=== PATIENT | male | born 1965 | race Two or more races ===

== ENCOUNTER 2016-06-30 12:05 | Emergency (ER) | payer SELFPAY ==
[~2016-06-30] VITALS: Ht 167.6 cm; Wt 72.6 kg
[2016-06-30 12:17] VITALS: BP 127/85
[2016-06-30 14:09] LABS: BASOPHILS % (AUTO) 1.6 % (0.0-2.0); LYMPHOCYTES % (AUTO) 9.8 % (20.0-45.0); MEAN CORPUSCULAR HEMOGLOBIN 31.5 PG (27.0-31.0); MEAN CORPUSCULAR HGB CONC 32.7 G/DL (32.0-36.0); MEAN CORPUSCULAR VOLUME 96 FL (80-99); MEAN PLATELET VOLUME 6.3 FL (6.5-10.1); MONOCYTES % (AUTO) 9.5 % (1.0-10.0); NEUTROPHILS % (AUTO) 79.1 % (45.0-75.0); PLATELET COUNT 290 K/UL (150-450); RED BLOOD COUNT 4.99 M/UL (4.70-6.10); RED CELL DISTRIBUTION WIDTH 13.8 % (11.6-14.8); WHITE BLOOD COUNT 6.8 K/UL (4.8-10.8)
[2016-06-30 14:19] LABS: TROPONIN I < 0.30 ng/mL (<=0.30)
[2016-06-30 14:20] LABS: ALANINE AMINOTRANSFERASE 197 U/L (3-41); ALBUMIN/GLOBULIN RATIO 1.3 (1.0-2.7); ALCOHOL 96 mg/dL; ANION GAP 27 (5-15); ASPARTATE AMINO TRANSFERASE 200 U/L (5-40); CALCIUM 9.1 mg/dL (8.6-10.2); CARBON DIOXIDE 20 mEQ/L (20-30); CHLORIDE 92 mEQ/L (98-107); CREATININE 0.7 mg/dL (0.7-1.2); GLOMERULAR FILTRATION RATE > 60 mL/min (>60); HEMOLYSIS 7; POTASSIUM 3.8 mEQ/L (3.4-4.9); SODIUM 139 mEQ/L (135-145); TOTAL PROTEIN 7.4 g/dL (6.6-8.7)
[2016-06-30 14:30] LABS: CKMB 8.4 ng/mL (< 6.7)
--- NOTE | 2016-06-30 14:56 | Emergency Room Report ---
History of Present Illness General Chief Complaint: Nausea Source: Patient Present Illness HPI This patient is a homeless male. He states that he has a history of alcoholism and he had been decreasing the amount of alcohol he has been drinking over the past 2 weeks. He states that he did drink some yesterday and today. However he is drinking significantly less. He is concerned because he's been having palpitations and nausea and abdominal cramping over the past 2 weeks since he started decreasing alcohol. He denies cough or congestion. He denies fever. He has no other complaints. Allergies: Coded Allergies: No Known Allergies (Unverified , 06/30/16) Patient History Past Medical History: see triage record, other - ETOH abuse and dependence Social History: Reports: alcohol use, Denies: drug use, smoking Reviewed Nursing Documentation: PMH: Agreed, PSxH: Agreed Review of Systems All Other Systems: negative except mentioned in HPI Physical Exam Vital Signs Date Time Temp Pulse Resp B/P Pulse Ox O2 Delivery O2 Flow Rate FiO2 06/30/16 11:57 99.0 120 18 154/82 100 Room Air Sp02 EP Interpretation: reviewed, normal General Appearance: no apparent distress, alert, GCS 15, non-toxic Head: normocephalic, atraumatic Eyes: bilateral eye PERRL, bilateral eye normal inspection ENT: hearing grossly normal, normal pharynx, no angioedema, normal voice Neck: full range of motion, supple/symm/no masses Respiratory: chest non-tender, lungs clear, normal breath sounds, speaking full sentences Cardiovascular #1: no edema, tachycardia Gastrointestinal: normal bowel sounds, soft, non-distended, no guarding, no rebound, tenderness - mild ttp Rectal: deferred Musculoskeletal: back normal, gait/station normal, normal range of motion, non- tender Neurologic: alert, oriented x3, responsive, motor strength/tone normal, sensory intact, speech normal Psychiatric: judgement/insight normal, memory normal, mood/affect normal, no suicidal/homicidal ideation Skin: normal color, no rash, warm/dry, well hydrated Medical Decision Making Diagnostic Impression: Primary Impression: Alcohol withdrawal ER Course This patient presents with alcohol withdrawal symptoms. I did obtain laboratory workup to include CBC, CMP and cardiac enzymes. These were unremarkable. Given the length of symptoms, this is reassuring that this is not acute coronary syndrome. There are no red flags on abdominal exam that would make me concerned for an intra-abdominal infection. Also laboratory workup is benign. The patient is a blood alcohol of 92. However, I suspect that this patient given his history of alcoholism had been drinking with blood alcohol likely in the 300s daily. Further, the patient's symptoms are very consistent with alcohol withdrawal syndrome. Initially, the patient was tachycardic but this resolved in the emergency department. I will go ahead and give this patient Librium and Zofran to help with his symptoms. He does plan to continue titrating himself off alcohol. He was also given a local resources for alcohol rehabilitation. Labs Test 06/30/16 13:31 White Blood Count 6.8 K/UL (4.8-10.8) Red Blood Count 4.99 M/UL (4.70-6.10) Hemoglobin 15.7 G/DL (14.2-18.0) Hematocrit 48.1 % (42.0-52.0) Mean Corpuscular Volume 96 FL (80-99) Mean Corpuscular Hemoglobin 31.5 PG (27.0-31.0) Mean Corpuscular Hemoglobin Concent 32.7 G/DL (32.0-36.0) Red Cell Distribution Width 13.8 % (11.6-14.8) Platelet Count 290 K/UL (150-450) Mean Platelet Volume 6.3 FL (6.5-10.1) Neutrophils (%) (Auto) 79.1 % (45.0-75.0) Lymphocytes (%) (Auto) 9.8 % (20.0-45.0) Monocytes (%) (Auto) 9.5 % (1.0-10.0) Eosinophils (%) (Auto) 0.0 % (0.0-3.0) Basophils (%) (Auto) 1.6 % (0.0-2.0) Sodium Level 139 mEQ/L (135-145) Potassium Level 3.8 mEQ/L (3.4-4.9) Chloride Level 92 mEQ/L (98-107) Carbon Dioxide Level 20 mEQ/L (20-30) Anion Gap 27 (5-15) Blood Urea Nitrogen 10 mg/dL (7-23) Creatinine 0.7 mg/dL (0.7-1.2) Estimat Glomerular Filtration Rate > 60 mL/min (>60) Glucose Level 124 mg/dL (74-106) Calcium Level 9.1 mg/dL (8.6-10.2) Total Bilirubin 1.0 mg/dL (0.0-1.2) Aspartate Amino Transf (AST/SGOT) 200 U/L (5-40) Alanine Aminotransferase (ALT/SGPT) 197 U/L (3-41) Alkaline Phosphatase 50 U/L (40-129) Total Creatine Kinase 566 U/L (38-174) Creatine Kinase MB 8.4 ng/mL (< 6.7) Creatine Kinase MB Relative Index 1.4 Troponin I < 0.30 ng/mL (<=0.30) Total Protein 7.4 g/dL (6.6-8.7) Albumin 4.3 g/dL (3.5-5.2) Globulin 3.1 g/dL Albumin/Globulin Ratio 1.3 (1.0-2.7) Urine Opiates Screen Negative (NEGATIVE) Urine Barbiturates Screen Negative (NEGATIVE) Phencyclidine (PCP) Screen Negative (NEGATIVE) Urine Amphetamines Screen Negative (NEGATIVE) Urine Benzodiazepines Screen Negative (NEGATIVE) Urine Cocaine Screen Negative (NEGATIVE) Urine Marijuana (THC) Screen Negative (NEGATIVE) Serum Alcohol 96 mg/dL EKG Diagnostic Results Rate: normal Rhythm: NSR ST Segments: no acute changes Rhythm Strip Diag. Results EP Interpretation: yes Rate: 90's Rhythm: NSR, no PVC's, no ectopy Chest X-Ray Diagnostic Results EP Interpretation: Yes Findings: no consolidation, no effusion, no pneumothorax, no acute cardiopulmonary disease Number of Views: 1 Last Vital Signs Date Time Temp Pulse Resp B/P Pulse Ox O2 Delivery O2 Flow Rate FiO2 06/30/16 12:17 104 17 127/85 98 Room Air 06/30/16 11:57 99.0 Status: improved Disposition: HOME, SELF-CARE Condition: Stable Referrals: NOT CHOSEN JERMAINE/,REFERRING (PCP) MARIELLA CHILD D.O. Jun 30, 2016 14:56
[2016-06-30] MEDS ORDERED: LIBRIUM10 MG ORAL (14:58)
[2016-06-30] MEDS ORDERED: ZOFRAN ODT4 MG ORAL (14:58)
[2016-06-30 15:00] VITALS: BP 116/79
--- NOTE | 2016-06-30 15:39 | Diagnostic Imaging Report ---
Indication: VOMITING Technique: One view of the chest Comparison: none Findings: Lungs and pleural spaces are clear. Heart size is normal. Aorta is tortuous. Impression: No acute process
[2016-06-30] MEDS ORDERED: PEPCID20 MG ORAL (21:29)
== END 2016-06-30 15:00 | disposition home or self-care (01) ==
LOC: EDBD → EMR 13:05
DX: F10.239 Alcohol dependence with withdrawal, unspecified (principal); R00.2 Palpitations; Z59.0 Homelessness
CPT/HCPCS: 36415; 71010; 80053; 80300; 82550; 82553; 84484; 85025; 93005; 96374; 96375; 99284; G0480; J2405; 80329

== ENCOUNTER 2016-06-30 18:19 | Emergency (ER) | payer SELFPAY ==
[~2016-06-30] VITALS: Ht 172.7 cm; Wt 99.8 kg
[~2016-06-30 18:19] MED LIST: LIBRIUM10 MG ORAL; ZOFRAN ODT4 MG ORAL
[2016-06-30 20:45] VITALS: BP 141/91
--- NOTE | 2016-06-30 20:57 | Emergency Room Report ---
History of Present Illness General Chief Complaint: Abdominal Pain Source: Patient Present Illness HPI 50 YO M with HTN presents with generalized abd pain, nausea, and dehydration. History of HTN. +EOTH. Denies other drugs. Denies previous surgery. Denies vomiting, diarrhea. Per EMS, patient brought in after found sleeping on park bench. Patient was recently released from ER a few hours prior - seen by Dr Pierre. Labs were unremarkable. ETOH was mildly elevated. Patient was hydrated and released. Allergies: Coded Allergies: No Known Allergies (Unverified , 06/30/16) Patient History Past Medical History: none Past Surgical History: none Pertinent Family History: none Social History: Reports: alcohol use Immunizations: UTD Reviewed Nursing Documentation: PMH: Agreed, PSxH: Agreed Nursing Documentation-PMH Past Medical History: No Stated History Review of Systems All Other Systems: negative except mentioned in HPI Physical Exam Vital Signs Date Time Temp Pulse Resp B/P Pulse Ox O2 Delivery O2 Flow Rate FiO2 06/30/16 18:19 99.1 120 14 158/103 99 Room Air Sp02 EP Interpretation: reviewed, normal General Appearance: normal inspection, well appearing, no apparent distress, alert, GCS 15, non-toxic, other - Generalized rubor. +EOTH, disheveled Head: normocephalic, atraumatic Eyes: bilateral eye EOMI, bilateral eye PERRL ENT: normal ENT inspection, hearing grossly normal, normal voice Neck: normal inspection, full range of motion, supple, no bony tend Respiratory: normal inspection, lungs clear, normal breath sounds, no respiratory distress, no retraction, no wheezing Cardiovascular #1: regular rate, rhythm, no edema Gastrointestinal: normal inspection, normal bowel sounds, non tender, soft, no guarding, no hernia Genitourinary: no CVA tenderness Musculoskeletal: normal inspection, back normal, normal range of motion, Karen' s Sign negative Neurologic: normal inspection, alert, oriented x3, responsive, circular knitter III-XII nml as tested, motor strength/tone normal, speech normal Psychiatric: normal inspection, judgement/insight normal, mood/affect normal Skin: normal inspection, normal color, no rash Lymphatic: normal inspection Medical Decision Making Diagnostic Impression: Primary Impression: Abdominal pain Qualified Codes: R10.84 - Generalized abdominal pain Additional Impression: Alcohol abuse ER Course Patient given PO Maalox Patient feels much better. Does not show clinical signs of dehydration VSS. Afebril.e Tolerating PO Exam continues to be non-focal on serial exam of abdomen Likely gastritis from chronic ETOH abuse Low suspicion for acute bacterial or surgical process at this time No need to repeat labs or do additional testing, admission given recently done/ unremarkable laboratory workup Advised d PMD followup Understands to Return to ER for worsening, focal abd pain, fever/chills or inability to tolerate PO Last Vital Signs Date Time Temp Pulse Resp B/P Pulse Ox O2 Delivery O2 Flow Rate FiO2 06/30/16 18:19 99.1 120 14 158/103 99 Room Air Status: improved Disposition: HOME, SELF-CARE Scripts Famotidine (PEPCID) 20 Mg Tablet 20 MG ORAL BID for 7 Days, #14 TAB 0 Refills Prov: ROQUE SIDDIQUI M.D. 06/30/16 Referrals: NOT CHOSEN JERMAINE/,REFERRING (PCP) ROQUE SIDDIQUI M.D. Jun 30, 2016 20:57
[2016-06-30] MEDS ORDERED: Morphine Sulfate 4mg/ml Inj IVP ONE (21:00)
[2016-06-30] MEDS ORDERED: PEPCID20 MG ORAL (21:29)
[2016-06-30] MEDS ORDERED: Mylanta II UD 30ml ORAL ONE (21:30)
[2016-06-30 21:40] VITALS: BP 141/91
--- NOTE | 2016-07-01 12:01 | Diagnostic Imaging Report ---
Indication: Chest Technique: One view of the chest Comparison: 06/30/2016 Findings: Lungs and pleural spaces remain clear. Aorta is tortuous. Heart size is upper limits of normal. No significant interim change Impression: No acute process
--- NOTE | 2016-07-02 14:03 | Cardiology Report ---
APPROVED REPORT EKG Measurement Heart [id number] SD [id number] Normal sinus rhythm Normal ECG
== END 2016-06-30 21:40 | disposition home or self-care (01) ==
LOC: EDBD 18:19 → EMR 19:42
DX: R10.84 Generalized abdominal pain (principal); F10.10 Alcohol abuse, uncomplicated; I10 Essential (primary) hypertension
CPT/HCPCS: 71010; 93005; 96374